=== PATIENT | male | born 1980 | race African-American/Black ===

== ENCOUNTER 2016-07-22 20:33 | Emergency (ER) | payer MEDICAID, OTHER ==
[2016-07-22 20:34] VITALS: O2SAT 99
[2016-07-22 21:10] VITALS: BP 104/60; PULSE 78; RESP 16; TEMP 100.4
[2016-07-22] MEDS ORDERED: ALUMINUM/MAGNESIUM 30 ML SUS PO ONE (21:20)
[2016-07-22] MEDS ORDERED: LIDOCAINE HCL 2% (VISCOUS) 20 ML SOL MT ONE (21:20)
[2016-07-22] MEDS ORDERED: ALUMINUM/MAGNESIUM 30 ML SUS ONE (21:21)
[2016-07-22] MEDS ORDERED: LIDOCAINE HCL 2% (VISCOUS) 20 ML SOL ONE (21:21)
== END 2016-07-22 22:02 | disposition home or self-care (01) | DRG 866 ==
LOC: ED 20:33
DX: B34.9 Viral infection, unspecified (principal); K29.70 Gastritis, unspecified, without bleeding; M25.50 Pain in unspecified joint; M79.1 Myalgia; R53.1 Weakness
CPT/HCPCS: 87804; 99282; 99283

== ENCOUNTER 2018-10-24 10:29 | Emergency (ER) | payer OTHER ==
[2018-10-24] MEDS ORDERED: MORPHINE SULFATE 10 MG/ML SOL IV ONE (10:42)
[2018-10-24] MEDS ORDERED: ONDANSETRON HCL 4 MG/2 ML SOL IV ONE (10:42)
[2018-10-24] MEDS ORDERED: ONDANSETRON HCL 4 MG/2 ML SOL ONE (10:43)
[2018-10-24] MEDS ORDERED: SODIUM CHLORIDE 0.9% 1000ML 1,000 ML IV SCH (10:45)
[2018-10-24] MEDS ORDERED: MORPHINE SULFATE 10 MG/ML SOL ONE (10:48)
[2018-10-24 10:52] LABS: BASOPHILS % (AUTO) 1 % (0-3); EOSINOPHILS % (AUTO) 0 % (0-9); HEMATOCRIT 44 % (39-53); HEMOGLOBIN 14.6 gm/dl (13.5-17.7); MEAN CORPUSCULAR HEMOGLOBIN 31.1 pg (27.0-32.0); MEAN CORPUSCULAR HGB CONC 33.2 gm/dl (32.0-36.0); MEAN CORPUSCULAR VOLUME 94 fL (80-100); MONOCYTES % (AUTO) 11.6 % (0-12); NEUTROPHILS % (AUTO) 67.5 % (37-80)
[2018-10-24 11:07] LABS: BILIRUBIN,TOTAL 0.7 mg/dl (0.2-1.0); CALCIUM 8.6 mg/dl (8.5-10.1); CARBON DIOXIDE 28.1 mEq/L (21-32); CREATININE 1.24 mg/dl (0.80-1.30); TOTAL PROTEIN 7.3 gm/dl (6.4-8.2)
[2018-10-24] MEDS ORDERED: PANTOPRAZOLE SODIUM 40 MG/10 ML PDS IV ONE (11:26)
[2018-10-24] MEDS ORDERED: PANTOPRAZOLE SODIUM 40 MG/10 ML PDS ONE (11:31)
[2018-10-24] MEDS ORDERED: LIDOCAINE HCL 2% (VISCOUS) 15 ML SOL PO ONE (11:48)
[2018-10-24] MEDS ORDERED: ALUMINUM/MAGNESIUM 30 ML SUS PO ONE (11:49)
[2018-10-24] MEDS ORDERED: LIDOCAINE HCL 2% (VISCOUS) 15 ML SOL ONE (11:51)
[2018-10-24] MEDS ORDERED: ALUMINUM/MAGNESIUM 30 ML SUS ONE (11:51)
[2018-10-24] MEDS ORDERED: HYDROMORPHONE HCL 2 MG/ML SOL IV ONE (12:04)
[2018-10-24 12:06] LABS: APPEARANCE,URINE Clear; BILIRUBIN,URINE NEGATIVE (NEGATIVE); COLOR,URINE Dark yellow; GLUCOSE, URINE (UA) NEGATIVE (NEGATIVE); KETONES,URINE 4+ (NEGATIVE); LEUKOCYTE ESTERASE ,URINE NEGATIVE (NEGATIVE); NITRATE,URINE NEGATIVE (NEGATIVE); OCCULT BLOOD,URINE NEGATIVE (NEG-TRACE)
[2018-10-24] MEDS ORDERED: HYDROMORPHONE 1 MG/ML SYRINGE ONE (12:08)
[2018-10-24] MEDS ORDERED: SODIUM CHLORIDE 0.9% FLUSH 10 ML SOL IV PRN (12:10)
[2018-10-24 12:24] LABS: BACTERIA 1+ (< 1+); CRYSTALS NEGATIVE (0-3 AVE/HPF); RBC,URINE 0-2 (0-3AV/HPF); WBC,URINE 0-2 (0-5AV/HPF)
[2018-10-24] MEDS ORDERED: SODIUM CHLORIDE 0.9% 1000ML 1,000 ML IV ONE (12:48)
[2018-10-24 13:12] VITALS: O2SAT 100
[2018-10-24 13:13] VITALS: TEMP 98.2
[2018-10-24 14:03] VITALS: PULSE 72
[2018-10-24 14:16] VITALS: BP 115/69; RESP 20
== END 2018-10-24 14:08 | disposition home or self-care (01) | DRG 392 ==
LOC: ED 10:29
DX: R11.2 Nausea with vomiting, unspecified (principal); E86.0 Dehydration
CPT/HCPCS: 36415; 74177; 80053; 80307; 81001; 85025; 96365; 96366; 96374; 96375; 99283; 99285; J2270; J2405; A9270-GY; J1170